=== PATIENT | female | born 1980 | race Caucasian/White ===

== ENCOUNTER 2020-07-29 15:58 | Inpatient (IN) ==
[2020-07-29 20:49] LABS: ABS Basophils 0.1 10^3/ul (0-0.2); ABS Eosinophils 0.1 10^3/ul (0-0.6); ABS Lymphocytes 2.1 10^3/ul (1.0-4.8); Eosinophil % 0.8 %; Hematocrit 38 % (35-47); Hemoglobin 13.2 g/dL (12.0-16.0); Lymphocyte % 12.9 %; Mean Corpuscular HGB Conc 35 g/dL (31-36); Mean Corpuscular Hemoglobin 32 pg (27-31); Mean Corpuscular Volume 92 fL (80-97); Mean Platelet Volume 9.4 fL (7.4-10.4); Platelet Count 192 10^3/uL (150-450); Red Blood Count 4.12 10^6 /uL (3.70-4.87); Red Cell Distribution Width 13 % (10-15); White Blood Count 16.3 10^3/uL (3.5-10.8)
[2020-07-29 20:55] LABS: Urine Appearance Clear; Urine Bilirubin Negative (Negative); Urine Blood Negative (Negative); Urine Color Colorless; Urine Glucose Negative (Negative); Urine Ketones Negative (Negative); Urine Nitrite Negative (Negative); Urine Protein Negative (Negative); Urine Specific Gravity 1.002 (1.010-1.030); Urine Urobilinogen Negative (Negative)
[2020-07-29 20:59] LABS: Albumin 3.4 g/dL (3.2-5.2); Albumin/Globulin Ratio 1.2 (1-3); BUN/Creatinine Ratio 14.8 (8-20); Calcium 8.8 mg/dL (8.6-10.3); EGFR African American 132.8 (>60); EGFR Non-African American 109.8 (>60); Globulin 2.9 g/dL (2-4); Potassium 3.7 mmol/L (3.5-5.0); Total Bilirubin 0.2 mg/dL (0.2-1.0); Total Protein 6.3 g/dL (6.4-8.9); Uric Acid 5.8 mg/dL (2.3-6.6)
[2020-07-29 21:06] LABS: Urine Benzodiazepine Screen None Detected (None Detect); Urine Cannabinoids Screen None Detected (None Detect); Urine Opiates Screen None Detected (None Detect)
[2020-07-29] MEDS ORDERED: Lactated Ringers 1000 ml BAG 1,000 ML IV SCH (22:00)
[2020-07-29] MEDS: Oxytocin in LR 20 UNITS/1,000 ML BAG IVPB SCH (22:18)
[2020-07-30] MEDS ORDERED: OBEPIDURAL 250 ML EPIDURAL ONE (03:29)
[2020-07-30] MEDS ORDERED: Sodium Citrate/Citric Acid LIQ 15 ML UDC PO PRN (06:32)
[2020-07-30] MEDS ORDERED: Phenylephrine 40 mcg/mL 10mL (400mcg) SYRINGE IV PUSH PRN ×2 (06:32)
[2020-07-30] MEDS ORDERED: Lactated Ringers 1000 ml BAG 1,000 ML IV ONE (06:32)
[2020-07-30] MEDS ORDERED: Lactated Ringers 1000 ml BAG 1,000 ML IV SCH ×2 (07:00→13:00)
[2020-07-30] MEDS ORDERED: OBEPIDURAL 250 ML EPIDURAL SCH (07:00)
[2020-07-30] MEDS: Oxytocin in LR 20 UNITS/1,000 ML BAG IVPB SCH (09:48)
[2020-07-30] MEDS ORDERED: Witch Hazel PAD JAR TOPICAL PRN (12:12)
[2020-07-30] MEDS ORDERED: Dibucaine 1% OINT 28.35 GM TUBE PR PRN (12:12)
[2020-07-30] MEDS ORDERED: Lidocaine 1% VIAL 10 MG/ML VIAL ONE (14:16)
[2020-07-31 09:46] LABS: ABS Basophils 0.1 10^3/ul (0-0.2); ABS Eosinophils 0.1 10^3/ul (0-0.6); ABS Lymphocytes 1.8 10^3/ul (1.0-4.8); ABS Monocytes 0.7 10^3/ul (0-0.8); ABS Neutrophils 10.8 10^3/ul (1.5-7.7); Eosinophil % 1.1 %; Hematocrit 36 % (35-47); Hemoglobin 12.4 g/dL (12.0-16.0); Lymphocyte % 13.5 %; Mean Corpuscular HGB Conc 34 g/dL (31-36); Mean Corpuscular Hemoglobin 32 pg (27-31); Mean Corpuscular Volume 93 fL (80-97); Mean Platelet Volume 8.8 fL (7.4-10.4); Platelet Count 184 10^3/uL (150-450); Red Blood Count 3.88 10^6 /uL (3.70-4.87); Red Cell Distribution Width 14 % (10-15); White Blood Count 13.5 10^3/uL (3.5-10.8)
[2020-08-01 08:09] VITALS: BP 146/98
== END 2020-08-01 12:50 | disposition home or self-care (01) | DRG 560 ==
LOC: MCHOBOUT 15:58 → MCHOB 19:37
PROVIDERS: ADMIT Midwife; ATTEND Midwife

== ENCOUNTER 2022-04-18 17:49 | Inpatient (IN) ==
[2022-04-18] MEDS ORDERED: Lactated Ringers 1000 ml BAG 1,000 ML IV ONE ×2 (18:56→19:57)
[2022-04-18 19:08] LABS: ABS Eosinophils 0.1 10^3/ul (0-0.6); ABS Lymphocytes 2.2 10^3/ul (1.0-4.8); ABS Monocytes 0.6 10^3/ul (0-0.8); ABS Neutrophils 10.1 10^3/ul (1.5-7.7); Eosinophil % 0.9 %; Hematocrit 38 % (35-47); Hemoglobin 12.7 g/dL (12.0-16.0); Lymphocyte % 16.6 %; Mean Corpuscular HGB Conc 34 g/dL (31-36); Mean Corpuscular Hemoglobin 31 pg (27-31); Mean Corpuscular Volume 93 fL (80-97); Mean Platelet Volume 9.3 fL (7.4-10.4); Platelet Count 192 10^3/uL (150-450); Red Blood Count 4.05 10^6 /uL (3.70-4.87); Red Cell Distribution Width 14 % (10-15); White Blood Count 13.1 10^3/uL (3.5-10.8)
[2022-04-18 19:09] LABS: Urine Appearance Clear; Urine Bilirubin Negative (Negative); Urine Blood Negative (Negative); Urine Color Straw; Urine Glucose Negative (Negative); Urine Ketones Negative (Negative); Urine Nitrite Negative (Negative); Urine Protein Negative (Negative); Urine Specific Gravity 1.003 (1.002-1.030); Urine Urobilinogen Negative (Negative)
[2022-04-18 19:27] LABS: Urine Benzodiazepine Screen None Detected (None Detect); Urine Cannabinoids Screen None Detected (None Detect); Urine Opiates Screen None Detected (None Detect)
[2022-04-18 19:28] LABS: Albumin 3.4 g/dL (3.2-5.2); Albumin/Globulin Ratio 1.3 (1-3); Calcium 8.8 mg/dL (8.6-10.3); Globulin 2.6 g/dL (2-4); Total Bilirubin 0.3 mg/dL (0.2-1.0); Uric Acid 6.6 mg/dL (2.3-6.6)
[2022-04-18] MEDS ORDERED: OBEPIDURAL (200 ML) 200 ML EPIDURAL ONE (19:51)
[2022-04-18] MEDS ORDERED: Sodium Citrate/Citric Acid LIQ 15 ML UDC PO PRN (19:57)
[2022-04-18] MEDS ORDERED: Phenylephrine 40 mcg/mL 10mL (400mcg) SYRINGE IV PUSH PRN ×2 (19:57)
[2022-04-18] MEDS ORDERED: OBEPIDURAL (200 ML) 200 ML EPIDURAL SCH (20:00)
[2022-04-18] MEDS ORDERED: Lactated Ringers 1000 ml BAG 1,000 ML IV SCH ×2 (20:00→22:00)
[2022-04-18] MEDS ORDERED: Oxytocin in LR 20,000 MILLI.UNIT/1,000 ML BAG IV ONE ×2 (21:37→22:50)
[2022-04-18] MEDS ORDERED: Oxytocin in LR 20,000 MILLI.UNIT/1,000 ML BAG IV SCH (22:00)
[2022-04-18] MEDS ORDERED: Witch Hazel PAD JAR TOPICAL PRN (22:00)
[2022-04-18] MEDS: Dibucaine 1% OINT 28.35 GM TUBE PR PRN (23:43)
[2022-04-19 06:23] LABS: ABS Eosinophils 0.2 10^3/ul (0-0.6); ABS Lymphocytes 2.4 10^3/ul (1.0-4.8); ABS Monocytes 0.8 10^3/ul (0-0.8); ABS Neutrophils 11.6 10^3/ul (1.5-7.7); Eosinophil % 1.4 %; Hematocrit 31 % (35-47); Hemoglobin 10.5 g/dL (12.0-16.0); Lymphocyte % 15.8 %; Mean Corpuscular HGB Conc 34 g/dL (31-36); Mean Corpuscular Hemoglobin 31 pg (27-31); Mean Corpuscular Volume 92 fL (80-97); Mean Platelet Volume 8.8 fL (7.4-10.4); Platelet Count 165 10^3/uL (150-450); Red Blood Count 3.38 10^6 /uL (3.70-4.87); Red Cell Distribution Width 14 % (10-15); White Blood Count 15.1 10^3/uL (3.5-10.8)
[2022-04-20] MEDS: Dibucaine 1% OINT 28.35 GM TUBE PR PRN (02:19)
[2022-04-20 13:15] VITALS: BP 142/76
== END 2022-04-20 14:07 | disposition home or self-care (01) | DRG 560 ==
LOC: MCHOBOUT 17:49 → MCHOB 18:22
PROVIDERS: ADMIT Midwife; ATTEND Midwife

== ENCOUNTER 2024-05-09 22:13 | Inpatient (IN) ==
[2024-05-09] MEDS ORDERED: Lidocaine 1% VIAL 10 MG/ML 30 ML VIAL INJ PRN (23:01)
[2024-05-09 23:53] LABS: ABS Eosinophils 0.3 10^3/uL (0.0-0.5); ABS Lymphocytes 2.5 10^3/uL (1.0-4.8); ABS Neutrophils 11.1 10^3/uL (1.5-7.6); Hematocrit 34.7 % (35-45); Hemoglobin 11.8 g/dL (11.5-14.3); Lymphocyte % 16.8 %; Mean Corpuscular Hemoglobin 31.4 pg (27-33); Mean Corpuscular Volume 92.4 fL (80-97); Mean Platelet Volume 8.3 fL (7.5-11.2); Platelet Count 270 10^3/uL (150-450); Red Blood Count 3.75 10^6/uL (3.63-4.92); Red Cell Distribution Width 13.9 % (12-17); White Blood Count 14.9 10^3/uL (3.8-11.8)
[2024-05-10 00:16] LABS: Urine Benzodiazepine Screen None Detected (None Detect); Urine Cannabinoids Screen None Detected (None Detect); Urine Opiates Screen None Detected (None Detect)
[2024-05-10] MEDS: Oxytocin in LR 20,000 MILLI.UNIT/1,000 ML BAG IV SCH ×2 (03:30→09:49)
[2024-05-10] MEDS: Lactated Ringers 1000 ml BAG 1,000 ML IV ONE (03:30)
[2024-05-10] MEDS ORDERED: Lidocaine 1.5% EPI 1:200,000 30 ML SDV ONE (05:05)
[2024-05-10] MEDS: Calcium Carb (TUMS) 500 mg CHEW TAB PO PRN (05:06)
[2024-05-10] MEDS: Lactated Ringers 1000 ml BAG 1,000 ML IV SCH (05:35)
[2024-05-10] MEDS: OBEPIDURAL (200 ML) 200 ML EPIDURAL ONE (05:44)
[2024-05-10] MEDS ORDERED: Sodium Citrate/Citric Acid LIQ 15 ML UDC PO PRN (05:52)
[2024-05-10] MEDS ORDERED: Phenylephrine 40 mcg/mL 10mL (400mcg) SYRINGE IV PUSH PRN ×2 (05:52)
[2024-05-10] MEDS ORDERED: Lactated Ringers 1000 ml BAG 1,000 ML IV ONE (05:52)
[2024-05-10] MEDS ORDERED: Lactated Ringers 1000 ml BAG 1,000 ML IV SCH ×2 (06:00→09:00)
[2024-05-10] MEDS ORDERED: OBEPIDURAL (200 ML) 200 ML EPIDURAL SCH (06:00)
[2024-05-10 07:10] LABS: Urine Appearance Clear; Urine Bilirubin Negative (Negative); Urine Blood Negative (Negative); Urine Color Light-Yellow; Urine Glucose Negative (Negative); Urine Ketones Negative (Negative); Urine Nitrite Negative (Negative); Urine Protein Negative (Negative); Urine Specific Gravity 1.011 (1.002-1.030); Urine Urobilinogen Negative (Negative); Urine pH 7.5 (5.0-8.0)
[2024-05-10] MEDS: Methylergonovine 0.2 mg AMPULE 1 ml AMP ONE (09:43)
[2024-05-10] MEDS: Witch Hazel PAD JAR TOPICAL PRN (10:04)
[2024-05-10] MEDS: Dibucaine 1% OINT 28.35 GM TUBE PR PRN (10:04)
[2024-05-10] MEDS ORDERED: Polyethylene Glycol 3350 17 GM PACKET PO PRN (11:34)
[2024-05-10 17:01] LABS: ABS Basophils 0.1 10^3/uL (0.0-0.1); ABS Eosinophils 0.1 10^3/uL (0.0-0.5); ABS Monocytes 1.1 10^3/uL (0.0-0.9); ABS Neutrophils 17.5 10^3/uL (1.5-7.6); ABS Nucleated RBC 0.01 10^3/ul; Eosinophil % 0.5 %; Hematocrit 32.1 % (35-45); Hemoglobin 11.1 g/dL (11.5-14.3); Lymphocyte % 9.7 %; Mean Corpuscular Hemoglobin 31.9 pg (27-33); Mean Corpuscular Hgb Conc 34.5 g/dL (31-36); Mean Corpuscular Volume 92.2 fL (80-97); Mean Platelet Volume 8.1 fL (7.5-11.2); Platelet Count 233 10^3/uL (150-450); Red Blood Count 3.48 10^6/uL (3.63-4.92); Red Cell Distribution Width 13.8 % (12-17); White Blood Count 20.9 10^3/uL (3.8-11.8)
[2024-05-11 05:49] LABS: ABS Basophils 0.1 10^3/uL (0.0-0.1); ABS Eosinophils 0.3 10^3/uL (0.0-0.5); ABS Lymphocytes 2.2 10^3/uL (1.0-4.8); ABS Neutrophils 13.3 10^3/uL (1.5-7.6); Eosinophil % 1.5 %; Hematocrit 32.1 % (35-45); Lymphocyte % 13.2 %; Mean Corpuscular Hemoglobin 31.8 pg (27-33); Mean Corpuscular Hgb Conc 34.1 g/dL (31-36); Mean Corpuscular Volume 93.1 fL (80-97); Platelet Count 233 10^3/uL (150-450); Red Blood Count 3.45 10^6/uL (3.63-4.92); Red Cell Distribution Width 13.8 % (12-17); White Blood Count 16.9 10^3/uL (3.8-11.8)
[2024-05-11 08:42] VITALS: BP 129/85
== END 2024-05-11 14:35 | disposition home or self-care (01) | DRG 560 ==
LOC: MCHOBOUT 22:13 → MCHOB 23:07
PROVIDERS: ADMIT Midwife; ATTEND Midwife